=== PATIENT | male | born 1985 | race Caucasian/White ===

== ENCOUNTER 2018-11-30 19:32 | Emergency (ER) | payer SELFPAY ==
[2018-11-30] MEDS ORDERED: Sodium Chloride 0.9% 10 ML Syringe FLUSH PRN (20:06)
[2018-11-30] MEDS ORDERED: Famotidine 20 MG/2 ML SDV IVPUSH ONE (20:08)
[2018-11-30] MEDS ORDERED: diphenhydrAMINE 50 MG/ML SDV IVPUSH ONE (20:08)
[2018-11-30] MEDS ORDERED: methylPREDNISolone Sodium Succinate 125 MG/2 ML SDV IVPUSH ONE (20:08)
--- NOTE | 2018-11-30 22:57 | EDM.PDOC ---
ED HPI GENERAL MEDICAL PROBLEM - General Chief Complaint: Allergic Reaction Stated Complaint: ALLERGIC REACTION Time Seen by Provider: 11/30/18 19:55 Source of Information: Reports: Patient, Family History Limitations: Reports: No Limitations - History of Present Illness INITIAL COMMENTS - FREE TEXT/NARRATIVE: The patient presents with a possible allergic reactions. He says he was just discharged from [facility]. He was admitted there for a meth overdose. He was given what he thinks was ketamine and ativan and then he got intubated. This was 3 days ago and he was released. He then developed a scratchy throat and some shortness of breath. He is worried he may be reacting to one of the mes he was given. he has no rash. He has no chest pain. He has no abdominal pain, nausea or vomiting. Onset: Gradual Duration: Hour(s): Severity: Moderate Improves with: Reports: None Worsens with: Reports: None Associated Symptoms: Reports: Shortness of Breath. Denies: Chest Pain, Cough, Fever/Chills, Headaches, Nausea/Vomiting Chest Pain Score (Numeric/FACES): 6 - Related Data Allergies Allergy/AdvReac Type Severity Reaction Status Date / Time ketamine Allergy Anaphylactic Verified 11/30/18 19:55 Shock Home Meds: Home Meds . [No Known Home Meds] 11/30/18 [History] Past Medical History - Past Health History Medical/Surgical History: Denies Medical/Surgical History Respiratory History: Reports: Intubation, Previous Musculoskeletal History: Reports: Back Pain, Chronic Social & Family History - Tobacco Use Smoking Status *Q: Current Every Day Smoker Years of Tobacco use: 2 Packs/Tins Daily: 0.5 - Caffeine Use Caffeine Use: Reports: Coffee, Soda, Tea - Recreational Drug Use Recreational Drug Use: Yes Drug Use in Last 12 Months: Yes Recreational Drug Type: Reports: Marijuana/Hashish, Methamphetamine Other Recreational Drug Type: last used meth 3 days ago-iv use snorted. ED ROS ALLERGIC REACTION - Review of Systems Review Of Systems: See Below Constitutional: Reports: No Symptoms HEENT: Reports: Other (itchy throat) Respiratory: Reports: Shortness of Breath Cardiovascular: Reports: No Symptoms Endocrine: Reports: No Symptoms GI/Abdominal: Reports: No Symptoms ED EXAM GENERAL NO PERIP PULSE - Physical Exam Exam: See Below Exam Limited By: No Limitations General Appearance: Alert, No Apparent Distress Ears: Normal External Exam Nose: Normal Inspection Throat/Mouth: Normal Inspection Head: Atraumatic, Normocephalic Neck: Normal Inspection Respiratory/Chest: No Respiratory Distress, Lungs Clear, Normal Breath Sounds Cardiovascular: Regular Rate, Rhythm, No Edema, No Murmur GI/Abdominal: Soft, Non-Tender, No Organomegaly, No Mass Back Exam: Normal Inspection Extremities: Normal Inspection Neurological: Alert, Oriented EKG INTERPRETATION EKG Date: 11/30/18 Time: 20:17 Rhythm: NSR Rate (Beats/Min): 97 [place]: Normal P-Wave: Present QRS: Normal ST-T: Normal QT: Normal Course - Vital Signs Last Recorded V/S: Last Vital Signs Temp 98.9 F 11/30/18 19:49 Pulse 99 11/30/18 19:49 Resp 20 11/30/18 19:49 BP 145/90 H 11/30/18 19:49 Pulse Ox 100 11/30/18 19:49 - Orders/Labs/Meds Orders: Active Orders 24 hr Category Date Time Status Cardiac Monitoring [RC] . DIRECTED Care 11/30/18 20:07 Active EKG Documentation Completion [RC] STAT Care 11/30/18 20:07 Active Peripheral IV Care [RC] . DIRECTED Care 11/30/18 20:06 Active Chest 2V [CR] Stat Exams 11/30/18 20:08 Taken DRUG SCREEN, URINE [URCHEM] Stat Lab 11/30/18 20:06 Ordered Peripheral IV Insertion Adult [OM.PC] Routine Oth 11/30/18 20:06 Ordered Labs: Laboratory Tests 11/30/18 11/30/18 Range/Units 20:33 20:33 WBC 10.91 H (4.23-9.07) K/mm3 RBC 4.71 (4.63-6.08) M/mm3 Hgb 13.9 (13.7-17.5) gm/L Hct 43.0 (40.1-51.0) % MCV 91.3 (79.0-92.2) fl MCH 29.5 (25.7-32.2) pg MCHC 32.3 (32.2-35.5) g/dl RDW Std Deviation 47.5 H (35.1-43.9) fL Plt Count 260 (163-337) K/mm3 MPV 10.1 (9.4-12.3) fl Neut % (Auto) 50.5 (34.0-67.9) % Lymph % (Auto) 33.8 (21.8-53.1) % [place] % (Auto) 13.5 H (5.3-12.2) % Eos % (Auto) 1.7 (0.8-7.0) Baso % (Auto) 0.2 (0.1-1.2) % Neut # (Auto) 5.51 H (1.78-5.38) K/mm3 Lymph # (Auto) 3.69 H (1.32-3.57) K/mm3 [place] # (Auto) 1.47 H (0.30-0.82) K/mm3 Eos # (Auto) 0.19 (0.04-0.54) K/mm3 Baso # (Auto) 0.02 (0.01-0.08) K/mm3 Sodium 142 (136-145) mEq/L Potassium 3.7 (3.5-5.1) mEq/L Chloride 105 (98-107) mEq/L Carbon Dioxide 28 (21-32) mEq/L Anion Gap 12.7 (5-15) BUN 13 (7-18) mg/dL Creatinine 1.0 (0.7-1.3) mg/dL Est Cr Clr Drug Dosing 108.49 mL/min Estimated GFR (MDRD) > 60 (>60) mL/min BUN/Creatinine Ratio 13.0 L (14-18) Glucose 97 (74-106) mg/dL Calcium 9.3 (8.5-10.1) mg/dL Total Bilirubin 0.4 (0.2-1.0) mg/dL AST 80 H (15-37) U/L ALT 136 H (16-63) U/L Alkaline Phosphatase 89 (46-116) U/L Troponin I < 0.017 (0.00-0.056) ng/mL Total Protein 7.5 (6.4-8.2) g/dl Albumin 3.3 L (3.4-5.0) g/dl Globulin 4.2 gm/dL Albumin/Globulin Ratio 0.8 L (1-2) Meds: Medications Discontinued Medications Generic Name Dose Route Start Last Admin Trade Name Freq PRN Reason Stop Dose Admin Diphenhydramine HCl 50 mg 11/30/18 20:08 11/30/18 20:18 Benadryl IVPUSH 11/30/18 20:09 50 mg ONETIME ONE Administration Famotidine 20 mg 11/30/18 20:08 11/30/18 20:23 Pepcid IVPUSH 11/30/18 20:09 20 mg ONETIME ONE Administration Methylprednisolone Sodium Succinate 125 mg 11/30/18 20:08 11/30/18 20:21 Solu-Medrol IVPUSH 11/30/18 20:09 125 mg ONETIME ONE Administration Sodium Chloride 10 ml 11/30/18 20:06 11/30/18 20:21 Saline Flush FLUSH 10 ml ASDIRECTED PRN Administration Keep Vein Open - Re-Assessments/Exams Free Text/Narrative Re-Assessment/Exam: 11/30/18 22:58 I ordered an IV saline lock, solu-medrol 125mg IV, benadryl 50mg IV, pepcid 20mg IV, EKG, CXR and labs. His EKG shows a NSR with no acute changes. His CXR looks good. His WBC was a little elevated at 10.91. His AST was elevated at 80. His ALT was elevated at 136. His troponin was normal. He was getting the pepcid and he said something did not feel right and he did not want any more and then he left against medical advise. Departure - Departure Time of Disposition: 23:05 Disposition: Against Medical Advice 07 Condition: Good Clinical Impression: Shortness of breath - Discharge Information *PRESCRIPTION DRUG MONITORING PROGRAM REVIEWED*: Not Applicable *COPY OF PRESCRIPTION DRUG MONITORING REPORT IN PATIENT JENNIFER: Not Applicable Referrals: PCP,None [Primary Care Provider] - Forms: ED Department Discharge Additional Instructions: Please return if you are worse. - My Orders Last 24 Hours: My Active Orders 11/30/18 20:06 Peripheral IV Care [RC] . DIRECTED DRUG SCREEN, URINE [URCHEM] Stat Peripheral IV Insertion Adult [OM.PC] Routine 11/30/18 20:07 Cardiac Monitoring [RC] . DIRECTED EKG Documentation Completion [RC] STAT 11/30/18 20:08 Chest 2V [CR] Stat - Assessment/Plan Last 24 Hours: My Active Orders 11/30/18 20:06 Peripheral IV Care [RC] . DIRECTED DRUG SCREEN, URINE [URCHEM] Stat Peripheral IV Insertion Adult [OM.PC] Routine 11/30/18 20:07 Cardiac Monitoring [RC] . DIRECTED EKG Documentation Completion [RC] STAT 11/30/18 20:08 Chest 2V [CR] Stat
--- NOTE | 2018-12-01 10:59 | CR ---
Chest: Two views of the chest were obtained. Comparison: No prior chest x-ray. Heart size and mediastinum are normal. Lungs are clear. Bony structures are unremarkable. Impression: 1. Nothing acute is seen on two-view chest x-ray. Diagnostic code #1
== END 2018-11-30 20:47 | disposition left against medical advice (07) ==
LOC: JD.ED 19:32
DX: R06.02 Shortness of breath (principal); F17.210 Nicotine dependence, cigarettes, uncomplicated; Z88.8 Allergy status to other drugs, medicaments and biological substances
CPT/HCPCS: 36415; 71046; 80053; 84484; 85025; 93005; 96374; 96375; 99285; J1200; J2930; J3490; 93010; 99284